=== PATIENT | male | born 1930 | race Caucasian/White ===

== ENCOUNTER → 2017-11-26 | Outpatient (CLI) | payer MEDICARE ==
--- NOTE | 2017-11-26 09:13 | CT ---
EXAMINATION TYPE: CT iac wo/w con DATE OF EXAM: 11/26/2017 COMPARISON: NONE HISTORY: 87-year-old male Hearing Loss, left side. Bilateral stapes implants. CT DLP: 300 mGycm Automated exposure control for dose reduction was used. TECHNIQUE: Contiguous high-resolution axial scanning of the temporal bones performed without and wit h IV Contrast, patient injected with 80 mL of Isovue 300. Coronal reformatted images obtained. FINDINGS: There is no evident abnormality of visualized intracranial structures by thin section CT. External auditory canals are patent. The middle ear cavities are well pneumatized. There is evidence of bilateral piston type stapes impl ants. The remainder of the middle ear ossicles appear intact. Of note, the medial portion of the giuseppe st implant extends beyond the expected oval window into the labyrinth, refer to axial image 48. There is mild scattered partial opacification of the left mastoid air cells. Right mastoid air cells remain well pneumatized. No abnormal enlargement of the vestibular or cochlear aqueducts.0 The facial nerve canal is normal bilaterally. The internal auditory canal and meati are symmetrical bilaterally. There is no evidence of fractures. There is trace mucosal thickening throughout the paranasal sinuses. Reformatted images confirm above findings. IMPRESSION: 1. Bilateral piston-type stapes prostheses. Findings are concerning for bilateral vestibular perforat ion (axial image 48). Clinical correlation recommended. 2. Scattered partial opacification of the left mastoid air cells. Correlate for any mastoid pain to e xclude mastoiditis. 3. Trace mucosal thickening throughout the paranasal sinuses.
== END | disposition home or self-care (01) ==
LOC: RADCTMAIN 06:44
PROVIDERS: ATTEND Otolaryngology
DX: H74.8X2 Other specified disorders of left middle ear and mastoid (principal); H91.90 Unspecified hearing loss, unspecified ear; Z98.890 Other specified postprocedural states
CPT/HCPCS: 82565; 84520; 70482; 36415; Q9967